=== PATIENT | female | born 1945 | race African-American/Black ===

== ENCOUNTER 2016-06-30 15:43 | Emergency (ER) | payer MEDICARE ==
[~2016-06-30] VITALS: Ht 165.1 cm; Wt 75.0 kg
[~2016-06-30 15:43] MED LIST: ETOMIDATE 2MG/ML 10ML VIAL IV ONE; GADOBENATE DIMEGLUMINE 529 MG/ML 10ML IV ONE; STERILE WATER FOR INJECTION 10ML VIAL ONE; SUCCINYLCHOLINE CHLORIDE 200MG/10ML VIAL IV ONE; VECURONIUM BROMIDE 10 MG/VIAL IV ONE
[2016-06-30] MEDS ORDERED: ACETAMINOPHEN 650MG SUPP PR STA (16:09)
[2016-06-30] MEDS ORDERED: CEFTRIAXONE 1 G PREMIX 50 ML IV ONE (16:15)
[2016-06-30] MEDS ORDERED: LEVOFLOXACIN 750MG PREMIX 150 ML IV ONE (16:15)
[2016-06-30] MEDS ORDERED: SODIUM CHLORIDE 0.9% 1000ML BAG (SEPSIS BOLUS) IV ONE (16:15)
[2016-06-30 16:52] LABS: HEMATOCRIT. 38.2 % (36.0-48.0); HEMOGLOBIN. 12.9 g/dL (12.0-16.0); MEAN CORPUSCULAR HGB CONC 33.7 g/dL (31.0-37.0); MEAN CORPUSCULAR VOLUME 89.3 fL (81.0-99.0); MEAN PLATELET VOLUME 9.3 fl (7.4-10.4); PLATELET 488 x1000/uL (130-400); RED BLOOD CELL COUNT 4.28 mill/uL (4.2-5.4); RED CELL DISTRIBUTION WIDTH 14.6 % (11.6-14.6); WHITE BLOOD COUNT 29.4 x1000/uL (4.5-11.0)
[2016-06-30 16:58] LABS: DIFFERENTIAL COMMENT 1
[2016-06-30 16:59] LABS: INR 1.3; PROTHROMBIN TIME 13.7 sec
[2016-06-30] MEDS ORDERED: VANCOMYCIN 1 G PREMIX 200 ML IV SCH (17:00)
[2016-06-30 17:08] LABS: LACTIC ACID 4.2 mmol/L (0.4-2.0)
[2016-06-30 17:17] LABS: BG CARBOXYHEMOGLOBIN 0.4 % (0.5-1.5); BG DEOXYHEMOGLOBIN 0.9 % (0.0-5.0); BG HCO3 ACT 19.3 mmol/L (22.0-26.0); BG OXYGEN SATURATION 99.1 % (92.0-98.5); BG OXYHEMOGLOBIN 98.7 % (94.0-97.0); BG PCO2 29.7 mmHg (35.0-45.0); BG PO2 151.4 mmHg (75.0-100.0); BG SAMPLE SITE RIGHT BRACHIAL; BG TOTAL HEMOGLOBIN 11.9 g/dL (12.0-18.0); BG VENT MODE MASK - NRB
[2016-06-30 17:25] LABS: ANISOCYTOSIS 1+; PLATELET ESTIMATE INCREASED
[2016-06-30 18:17] LABS: GLUCOSE CSF < 1 mg/dL (41-75)
[2016-06-30] MEDS ORDERED: MVI, ADULT NO.1 10 ML, FOLIC ACID 1 MG, THIAMINE HCL 100 MG in SODIUM CHLORIDE 0.9% 1,0... IV SCH ×4 (18:30)
[2016-06-30] MEDS ORDERED: HYDROMORPHONE HCL/PF 2MG/ML CPJ IV PRN (18:30)
[2016-06-30] MEDS ORDERED: ACETAMINOPHEN 650MG SUPP PR PRN (18:30)
[2016-06-30] MEDS ORDERED: PIPERACILLIN/TAZ 3.375G PREMIX 50 ML IV SCH (18:30)
[2016-06-30] MEDS ORDERED: IPRATROPIUM/ALBUTEROL 0.5-3(2.5)MG/3ML NEB HHN SCH (18:30)
[2016-06-30] MEDS ORDERED: ENOXAPARIN 40MG/0.4ML SYR SUBCUT SCH (18:30)
[2016-06-30] MEDS ORDERED: ONDANSETRON HCL 4MG/2ML VIAL IV PRN (18:30)
[2016-06-30] MEDS ORDERED: LORAZEPAM 2MG/ML CPJ IV PRN (18:30)
[2016-06-30 18:45] LABS: ALANINE AMINOTRANSFERASE 40 IU/L (13-61); ANION GAP 18; CALCIUM 8.7 mg/dL (8.5-10.1); CARBON DIOXIDE 23 mEq/L (21-32); CHLORIDE 103 mEq/L (98-107); INDEX HEMOLYSI 1 (1-3); INDEX ICTERIC 1 (1-4); INDEX LIPEMIC 1 (1-3); UREA NITROGEN BLOOD 27 mg/dL (7-21); eGFR 49 mL/min (>60)
[2016-06-30 18:53] LABS: CSF TOTAL VOLUME 3.5 mL
[2016-06-30 18:54] LABS: CSF APPEARANCE HAZY (CLEAR)
[2016-06-30 18:57] LABS: ALBUMIN 2.1 g/dL (3.4-5.0)
[2016-06-30 18:59] LABS: CSF WHITE BLOOD CELL 220 /cu mm (0-10)
[2016-06-30] MEDS ORDERED: DEXT 5%/0.45% NACL KCL 20MEQ/L 1,000 ML IV SCH (19:00)
[2016-06-30 19:45] LABS: HEPATITIS B SURFACE ANTIGEN NEGATIVE
[2016-06-30 20:13] LABS: HEPATITIS B CORE AB IGM NEGATIVE; HEPATITIS C VIR.AB 0.16 INDEXVAL (0.00-0.80)
[2016-06-30 20:15] LABS: HEPATITIS A AB IGM NEGATIVE (NEGATIVE)
[2016-06-30] MEDS ORDERED: PHENYTOIN SODIUM 1,000 MG in SODIUM CHLORIDE 0.9% 100 ML IV ONE (22:15)
[2016-06-30] MEDS ORDERED: SODIUM CHLORIDE 0.9% 1,000 ML IV ONE (22:40)
[2016-06-30] MEDS ORDERED: LORAZEPAM 2MG/ML CPJ IV ONE (22:45)
[2016-06-30] MEDS ORDERED: PROPOFOL 10MG/ML 100ML 100 ML IV ONE (23:15)
[2016-06-30] MEDS ORDERED: SUCCINYLCHOLINE CHLORIDE 200MG/10ML VIAL IV ONE (23:15)
[2016-07-01 00:50] VITALS: BP 109/53
[2016-07-01 01:06] LABS: BG BASE EXCESS -5.9 mmol/L (-2.0-2.0); BG CARBOXYHEMOGLOBIN 0.8 % (0.5-1.5); BG DEOXYHEMOGLOBIN 0.7 % (0.0-5.0); BG FRACTION INSPIRED OXYGEN 100; BG HCO3 ACT 17.1 mmol/L (22.0-26.0); BG METHEMOGLOBIN 0.3 % (0.0-1.5); BG OXYGEN SATURATION 99.3 % (92.0-98.5); BG OXYHEMOGLOBIN 98.2 % (94.0-97.0); BG PCO2 27.2 mmHg (35.0-45.0); BG PH 7.417 (7.350-7.450); BG PO2 173.1 mmHg (75.0-100.0); BG SAMPLE SITE LEFT RADIAL; BG TIDAL VOLUME(mL) 500 mL; BG TOTAL HEMOGLOBIN 13.3 g/dL (12.0-18.0); BG VENT MODE VENT - A/C; BG VENT RATE 14 set
[2016-07-01] MEDS ORDERED: PANTOPRAZOLE SODIUM 40 MG/VIAL IV SCH (09:00)
== END 2016-07-01 01:49 | disposition short-term general hospital (02) ==
LOC: ER 15:44
DX: A41.9 Sepsis, unspecified organism (principal); I10 Essential (primary) hypertension; H66.91 Otitis media, unspecified, right ear; H70.91 Unspecified mastoiditis, right ear; G03.9 Meningitis, unspecified; J01.00 Acute maxillary sinusitis, unspecified; J01.20 Acute ethmoidal sinusitis, unspecified; E11.65 Type 2 diabetes mellitus with hyperglycemia; H60.21 Malignant otitis externa, right ear
CPT/HCPCS: 31500; 36415; 36600; 62270; 70450; 70553; 71010; 80053; 82375; 82805; 82945; 82962; 83605; 84145; 84157; 85025; 85610; 87040; 87070; 87075; 87077; 87186; 87205; 89050; 93005; 94002; 96361; 96365; 96366; 96367; 96375; 99291; A4216; A9577; J0330; J0696; J1165; J1956; J2060; J2405; J2704; J3370; J3490; J7030; J7050; 86705; 86709; 86803; 87340